=== PATIENT | male | born 1960 | race Caucasian/White ===

== ENCOUNTER 2016-07-30 13:35 | Emergency (ER) | payer BC ==
[~2016-07-30] VITALS: Ht 182.9 cm; Wt 105.0 kg
[~2016-07-30 13:35] MED LIST: CIPR-255 PO; CLR10 PO; CYCL10TA6 PO; FLUT0.0529 NAE; FLUT0.15 NAE; FLX10 PO; HYDC25 PO; HYDR25TA4 PO; LISI-725 PO; LORA-741 PO; LORA0.5T12 PO; NAPR-1169 PO; OMEP40CA PO; RANI300T2 PO; TERA1CAP63 PO
[2016-07-30 13:46] VITALS: TEMP 36.7; Ht 182.9 cm; Wt 105.0 kg
[2016-07-30] MEDS ORDERED: MoRPHine SULFATE 4 MG/ML 1 ML CARP\\VIAL IV STA (13:57)
[2016-07-30] MEDS ORDERED: ONDANSETRON INJ 2 MG/ML 2 ML VIAL IV STA (13:57)
[2016-07-30] MEDS ORDERED: LEVO75TA PO (14:09)
[2016-07-30] MEDS ORDERED: PRLSR20 PO (14:09)
[2016-07-30] MEDS ORDERED: ATEN50TA8 PO (14:09)
[2016-07-30] MEDS ORDERED: AMOX500C3 PO (14:10)
[2016-07-30] MEDS ORDERED: HYDR25TA4 PO (14:10)
[2016-07-30 14:28] LABS: BASO % 1.5 %; BASO ABS # 0.14 K/uL (0-0.2); COMPLETE YES; EOS % 2.5 %; HEMATOCRIT 42.1 % (42-52); IG% 0.3 %; LYMPH % 23.9 %; LYMPH ABS # 2.26 K/uL (1.2-3.4); MEAN CELL VOLUME 87.3 fL (80-100); MEAN CORPUSCULAR HEMOGLOBIN 29.7 pg (25-34); MEAN PLATELET VOLUME 11.4 fL (7.4-10.4); MONO % 13.5 %; NEUT % 58.3 %; PLATELET COUNT 210 K/uL (130-400); RED BLOOD COUNT 4.82 M/uL (4.7-6.1); WHITE BLOOD COUNT 9.45 K/uL (4.8-10.8)
[2016-07-30] MEDS ORDERED: OPTIRAY 320 IV PRN (14:45)
[2016-07-30 15:06] LABS: BUN/CREATININE RATIO 17.3 (10-20); CALCIUM 9.4 mg/dl (8.5-10.1); CREATININE 0.88 mg/dl (0.60-1.40); POTASSIUM 3.8 mmol/L (3.5-5.1)
[2016-07-30] MEDS ORDERED: MoRPHine SULFATE 2 MG/ML CARP IV STA (15:07)
[2016-07-30 15:32] LABS: URINE APPEARANCE CLEAR (CLEAR); URINE BILIRUBIN NEG (NEG); URINE COLOR YELLOW; URINE NITRITE NEG (NEG); URINE PH 7.5 (4.5-7.5); URINE SPECIFIC GRAVITY 1.007 (1.000-1.030); UROBILINOGEN NEG (NEG)
[2016-07-30 15:46] LABS: MANUAL MICROSCOPIC REQUIRED? NO; REVIEW REQ? NO
--- NOTE | 2016-07-30 17:24 | DIAGNOSTIC IMAGING REPORT ---
ABDOMEN AND PELVIS CT WITH IV AND ORAL CONTRAST CT DOSE: 1012.94 mGy.cm HISTORY: lower abd pain eval for diverticulitis TECHNIQUE: Multiaxial CT images of the abdomen and pelvis were performed following the use of intravenous and oral contrast. COMPARISON STUDY: Abdomen and pelvis CT 04/15/2015. FINDINGS: Trace bilateral pleural effusions, unchanged. Bibasilar linear densities favor subsegmental atelectasis. Tiny fat-containing left inguinal hernia. Cholecystectomy. The liver, spleen, pancreas, and adrenal glands are unremarkable. No retroperitoneal lymphadenopathy. No hydronephrosis. There are 2 subcentimeter hypodense lesions within the lower pole of the right kidney with the largest measuring 6 mm. These are too small to characterize but favor cysts. Normal appendix. The bladder is unremarkable. Focal thickening involving the proximal sigmoid colon with associated pericolonic fat stranding. This is consistent with acute diverticulitis. No perforation or abscess identified at this time. Multiple colonic diverticula. No evidence for bowel obstruction. IMPRESSION: 1. Acute sigmoid diverticulitis. No perforation or abscess. Recommend follow-up to ensure resolution. 2. Stable trace bilateral pleural effusions. 3. Additional findings as described above. Electronically signed by: Lio Singh M.D. 07/30/2016 5:23 PM Dictated Date/Time: 07/30/2016 5:19 PM
[2016-07-30] MEDS ORDERED: AMOX875T PO (17:33)
[2016-07-30] MEDS ORDERED: OXYC1TAB3 PO (17:33)
[2016-07-30] MEDS ORDERED: AMOXICILLIN/CLAVULANATE TAB 875 MG TAB PO ONE (17:45)
[2016-07-30 17:47] VITALS: BP 155/102; PULSE 70; O2SAT 99
--- NOTE | 2016-07-30 19:01 | EMERGENCY ROOM VISIT NOTE ---
History Report prepared by Inocencio: Linette Bright Under the Supervision of: Dr. Manuelito Damon M.D. First contact with patient: 13:51 Chief Complaint: ABDOMINAL PAIN Stated Complaint: SHARP PAIN IN LWR RT SIDE/BELLY-GROIN AREA History of Present Illness The patient is a 55 year old male who presents to the Emergency Room with complaints of worsening lower abdominal pain beginning yesterday. The patient states that the pain started on the right side and has radiated to the left. He describes the pain as a burning sensation and sharp. The patient has a history of diverticulitis and notes that the pain feels similar. He is also experiencing groin pain and pain with urination. The patient denies diarrhea, vomiting, fever, or testicular swelling. Source of History: patient Onset: yesterday Position: abdomen (right to left side) Quality: burning, sharp Timing: worsening Associated Symptoms: + urinary symptoms (pain with urination), No diarrhea, No fevers, No hematochezia, No melena, No vomiting Note: The patient has groin pain. He denies testicular swelling. Review of Systems See HPI for pertinent positives & negatives. A total of 10 systems reviewed and were otherwise negative. Past Medical & Surgical Medical Problems: (1) Anxiety (2) Benign hypertension (3) Chest pain (4) Depression (5) Hypospadias (6) Knee pain (7) Pes anserinus bursitis of left knee Surgical Problems: (1) History of cholecystectomy (2) Tonsillectomy and adenoidectomy Family History Gallbladder disease Hypertension Social History Smoking Status: Never Smoker Alcohol Use: none Drug Use: none Marital Status: Housing Status: lives with family Occupation Status: employed Current/Historical Medications Scheduled Amoxicillin (Amoxil), 500 MG PO TID Amoxicillin & Pot Clavulanate (Augmentin 875-125 mg), 875 MG PO BID Atenolol (Tenormin), 50 MG PO DAILY Hydrochlorothiazide (Hctz), 25 MG PO DAILY Levothyroxine Sodium (Synthroid), 75 MCG PO DAILY Lisinopril (Zestril), 20 MG PO DAILY Omeprazole (Prilosec), 40 MG PO DAILY Terazosin Hcl (Hytrin), 10 MG PO HS Scheduled PRN Cyclobenzaprine Hcl (Flexeril), 1 TAB PO HS PRN for MUSCLWE SPASMS Fluticasone Propionate (Nasal) (Flonase Allergy Relief), 2 SPRAYS MARI DAILY PRN for Nasal Congestion Loratadine (Claritin), 10 MG PO DAILY PRN for ALLERGIC REACTION Lorazepam (Lorazepam), 0.5 MG PO Q6 PRN for Anxiety Oxycodone Ir (Roxicodone Ir), 5 MG PO Q4H PRN for Pain Ranitidine Hcl (Zantac), 300 MG PO HS PRN for Dyspepsia Allergies Coded Allergies: Aspirin (Verified Adverse Reaction, Mild, "nose bleed" (high doses), ) Physical Exam Vital Signs Date Time Temp Pulse Resp B/P Pulse Ox O2 Delivery O2 Flow Rate FiO2 07/30/16 17:47 70 18 155/102 99 Room Air 07/30/16 15:32 65 16 149/98 97 Room Air 07/30/16 14:34 72 20 142/94 98 Room Air 07/30/16 13:46 36.7 71 20 150/101 99 Room Air Physical Exam Constitutional: Vital signs reviewed. Eyes: Pupils are equal round reactive to light. Conjunctiva are noninjected. ENT: Pharynx is clear without erythema or exudate. Mucous membranes are moist. Neck supple without meningeal signs. Respiratory: Clear to auscultation bilaterally. Breath sounds are equal bilaterally. Cardiovascular: Regular rate and rhythm. No rubs or gallops. GI: Soft and nondistended. Diffusely tender in lower abdomen, greatest in suprapubic area. No guarding. Bowel sounds are present. Musculoskeletal: No peripheral edema. No CVA tenderness. Integumentary: No cyanosis. Neurological: The patient is awake and alert. No focal deficits. Psychiatric: Normal affect. Medical Decision & Procedures ER Provider Diagnostic Interpretation: CT results as stated below per my review and radiologist interpretation. ABDOMEN AND PELVIS CT WITH IV AND ORAL CONTRAST CT DOSE: 1012.94 mGy.cm HISTORY: lower abd pain eval for diverticulitis TECHNIQUE: Multiaxial CT images of the abdomen and pelvis were performed following the use of intravenous and oral contrast. COMPARISON STUDY: Abdomen and pelvis CT 04/15/2015. FINDINGS: Trace bilateral pleural effusions, unchanged. Bibasilar linear densities favor subsegmental atelectasis. Tiny fat-containing left inguinal hernia. Cholecystectomy. The liver, spleen, pancreas, and adrenal glands are unremarkable. No retroperitoneal lymphadenopathy. No hydronephrosis. There are 2 subcentimeter hypodense lesions within the lower pole of the right kidney with the largest measuring 6 mm. These are too small to characterize but favor cysts. Normal appendix. The bladder is unremarkable. Focal thickening involving the proximal sigmoid colon with associated pericolonic fat stranding. This is consistent with acute diverticulitis. No perforation or abscess identified at this time. Multiple colonic diverticula. No evidence for bowel obstruction. IMPRESSION: 1. Acute sigmoid diverticulitis. No perforation or abscess. Recommend follow-up to ensure resolution. 2. Stable trace bilateral pleural effusions. 3. Additional findings as described above. Electronically signed by: Lio Singh M.D. 07/30/2016 5:23 PM Dictated Date/Time: 07/30/2016 5:19 PM Laboratory Results 07/30/16 14:13 Red Blood Count 4.82, Mean Corpuscular Volume 87.3, Mean Corpuscular Hemoglobin 29.7, Mean Corpuscular Hemoglobin Concent 34.0, Mean Platelet Volume 11.4, Neutrophils (%) (Auto) 58.3, Lymphocytes (%) (Auto) 23.9, Monocytes (%) (Auto) 13.5, Eosinophils (%) (Auto) 2.5, Basophils (%) (Auto) 1.5, Neutrophils # (Auto ) 5.50, Lymphocytes # (Auto) 2.26, Monocytes # (Auto) 1.28, Eosinophils # (Auto ) 0.24, Basophils # (Auto) 0.14 07/30/16 14:13 Test 07/30/16 14:13 07/30/16 15:24 White Blood Count 9.45 K/uL (4.8-10.8) Red Blood Count 4.82 M/uL (4.7-6.1) Hemoglobin 14.3 g/dL (14.0-18.0) Hematocrit 42.1 % (42-52) Mean Corpuscular Volume 87.3 fL (80-100) Mean Corpuscular Hemoglobin 29.7 pg (25-34) Mean Corpuscular Hemoglobin Concent 34.0 g/dl (32-36) Platelet Count 210 K/uL (130-400) Mean Platelet Volume 11.4 fL (7.4-10.4) Neutrophils (%) (Auto) 58.3 % Lymphocytes (%) (Auto) 23.9 % Monocytes (%) (Auto) 13.5 % Eosinophils (%) (Auto) 2.5 % Basophils (%) (Auto) 1.5 % Neutrophils # (Auto) 5.50 K/uL (1.4-6.5) Lymphocytes # (Auto) 2.26 K/uL (1.2-3.4) Monocytes # (Auto) 1.28 K/uL (0.11-0.59) Eosinophils # (Auto) 0.24 K/uL (0-0.5) Basophils # (Auto) 0.14 K/uL (0-0.2) RDW Standard Deviation 43.9 fL (36.4-46.3) RDW Coefficient of Variation 13.7 % (11.5-14.5) Immature Granulocyte % (Auto) 0.3 % Immature Granulocyte # (Auto) 0.03 K/uL (0.00-0.02) Anion Gap 9.0 mmol/L (3-11) Est Creatinine Clear Calc Drug Dose 118.8 ml/min Estimated GFR () 112.1 Estimated GFR (Non- 96.7 BUN/Creatinine Ratio 17.3 (10-20) Calcium Level 9.4 mg/dl (8.5-10.1) Total Bilirubin 0.9 mg/dl (0.2-1) Direct Bilirubin 0.2 mg/dl (0-0.2) Aspartate Amino Transf (AST/SGOT) 27 U/L (15-37) Alanine Aminotransferase (ALT/SGPT) 46 U/L (12-78) Alkaline Phosphatase 117 U/L (45-117) Total Protein 7.5 gm/dl (6.4-8.2) Albumin 4.1 gm/dl (3.4-5.0) Lipase 137 U/L (73-393) Chemistry Specimen Hemolysis Urine Color YELLOW Urine Appearance CLEAR (CLEAR) Urine pH 7.5 (4.5-7.5) Urine Specific [place] 1.007 (1.000-1.030) Urine Protein NEG (NEG) Urine Glucose (UA) NEG (NEG) Urine Ketones NEG (NEG) Urine Occult Blood NEG (NEG) Urine Nitrite NEG (NEG) Urine Bilirubin NEG (NEG) Urine Urobilinogen NEG (NEG) Urine Leukocyte Esterase NEG (NEG) Laboratory results as reviewed by me. Medications Administered Medications (Trade) Dose Ordered Sig/Nichelle Route Start Time Stop Time Status Last Admin Dose Admin Morphine Sulfate (MoRPHine SULFATE INJ) 4 mg ONE STAT IV 07/30/16 13:57 07/30/16 13:59 DC 07/30/16 13:57 4 MG Ondansetron HCl (Zofran Inj) 4 mg NOW STAT IV 07/30/16 13:57 07/30/16 13:59 DC 07/30/16 13:57 4 MG Morphine Sulfate (MoRPHine SULFATE INJ) 2 mg NOW STAT IV 07/30/16 15:07 07/30/16 15:09 DC 07/30/16 15:31 2 MG Amoxicillin/ Clavulanate Potassium (Augmentin Tab) 875 mg ONE ONCE PO 07/30/16 17:45 07/30/16 17:46 DC 07/30/16 17:43 875 MG ED Course 1352: The patient was evaluated in room B8. A complete history and physical exam was performed. 1357: Zofran Inj 4 mg IV, Morphine Sulfate Inj 4 mg IV. 1505: The patient is feeling better but still has some pain. 1507: Morphine Sulfate Inj 2 mg IV. 1730: I discussed the test results including incidental findings on the CT scan. I also discussed medication side effects with the patient. He states that he does not drink alcohol. The patient will follow up with his PCP. I told him to stay on a liquid diet. He states that he does not take his anxiety medication anymore. 1733: Upon reevaluation, the patient appeared to have improvement of his symptoms. I discussed tonight's findings with him. He verbalized agreement of the treatment plan. He was discharged home. 1745: Augmentin Tab 875 mg PO. Medical Decision This is a 55-year-old male who presents with abdominal pain and dysuria. Differential diagnosis includes diverticulitis, abscess, perforation, kidney stone, UTI, appendicitis. I did perform a limited focused review of portions of the patient's old chart on the electronic medical record. The patient had diverticulitis over a year ago. I did evaluate the patient as noted above. IV access was established. I did treat the patient with IV morphine and Zofran. I did order and personally review the patient's urinalysis as described above. There is no evidence of UTI. I did order and review the patient's blood work as noted in the electronic medical record. His white blood cell count is not elevated. I did order a CT of the abdomen and pelvis. I did review the images myself as well as the radiology report as described above. He does have sigmoid diverticulitis without perforation or abscess. There were also some incidental findings which I discussed with the patient. On reassessment he is feeling better. He was told to stay on it with diet for the next several days. He was given a prescription for Augmentin and oxycodone for pain. He was given his first dose of Augmentin here. He was given precautions regarding these medications. He was discharged in good condition with a work note. Impression Primary Impression: Sigmoid diverticulitis Scribe Attestation The scribe's documentation has been prepared under my direct and personally reviewed by me in its entirety. I confirm that the note above accurately reflects all work, treatment, procedures, and medical decision making performed by me. Departure Information Dispostion Home / Self-Care Prescriptions Oxycodone Ir (Roxicodone Ir) 5 Mg Tab 5 MG PO Q4H Y for Pain, #20 TAB Prov: Manuelito Damon M.D. 07/30/16 Amoxicillin & Pot Clavulanate (Augmentin 875-125 mg) 1 Tab Tab 875 MG PO BID for 14 Days, #28 TAB Prov: Manuelito Damon M.D. 07/30/16 Referrals Mau Sesay M.D. (PCP) Forms Call Back Authorization, HOME CARE DOCUMENTATION FORM, IMPORTANT VISIT INFORMATION, Work Instructions Patient Instructions ED Diverticulitis, My [facility] Additional Instructions You have been examined and treated today on an emergency basis only. This is not a substitute for, or an effort to provide, complete comprehensive medical care. It is impossible to recognize and treat all injuries or illnesses in a single emergency department visit. It is therefore important that you follow up closely with your physician within 3 days. Call as soon as possible for an appointment. Return for worsening symptoms or if you develop fever, vomiting, or any other concerning symptoms. Stay on a liquid diet for the next 3 days.
== END 2016-07-30 17:53 | disposition home or self-care (01) ==
LOC: C.EDB 13:36
DX: K57.92 Diverticulitis of intestine, part unspecified, without perforation or abscess without bleeding (principal); I10 Essential (primary) hypertension; F41.9 Anxiety disorder, unspecified; F32.9 Major depressive disorder, single episode, unspecified; Z98.890 Other specified postprocedural states; Z90.49 Acquired absence of other specified parts of digestive tract; Z79.899 Other long term (current) drug therapy; Z88.6 Allergy status to analgesic agent; Z83.79 Family history of other diseases of the digestive system; Z82.49 Family history of ischemic heart disease and other diseases of the circulatory system

== ENCOUNTER 2017-06-03 15:26 | Emergency (ER) | payer BC ==
[~2017-06-03] VITALS: Ht 188 cm; Wt 113.2 kg
[~2017-06-03 15:26] MED LIST changes: +AMOX500C3 PO; +ATEN50TA8 PO; -CIPR-255 PO; -FLUT0.0529 NAE; -FLX10 PO; -HYDC25 PO; +LEVO75TA PO; -LORA-741 PO; -NAPR-1169 PO; -OMEP40CA PO; +PRLSR20 PO
[2017-06-03 15:32] VITALS: Ht 188 cm; Wt 113.2 kg
[2017-06-03] MEDS ORDERED: CEFAZOLIN SOD 1000MG/7.5 ML IV PUSH IV STA (15:51)
[2017-06-03] MEDS ORDERED: IBUP600T44 PO (16:47)
[2017-06-03] MEDS ORDERED: LEVO100T7 PO (16:47)
[2017-06-03] MEDS ORDERED: OXYC-57 PO (16:47)
[2017-06-03] MEDS ORDERED: ASCO250T4 PO (16:47)
[2017-06-03] MEDS ORDERED: ENOX30IN4 SQ (16:47)
[2017-06-03] MEDS ORDERED: FERR1TAB13 PO (16:47)
[2017-06-03] MEDS ORDERED: FLV400 PO (16:47)
[2017-06-03] MEDS ORDERED: TRAM-10 PO (16:47)
[2017-06-03 16:55] VITALS: BP 164/104; PULSE 73; TEMP 37.1; O2SAT 95
[2017-06-03 16:59] LABS: BASO % 1.7 %; BASO ABS # 0.11 K/uL (0-0.2); EOS % 3.4 %; EOS ABS # 0.22 K/uL (0-0.5); HEMOGLOBIN 12.8 g/dL (14.0-18.0); IG# 0.02 K/uL (0.00-0.02); LYMPH % 35.2 %; LYMPH ABS # 2.25 K/uL (1.2-3.4); MEAN CELL VOLUME 86.9 fL (80-100); MEAN CORPUSCULAR HGB CONC 34.6 g/dl (32-36); MEAN PLATELET VOLUME 10.7 fL (7.4-10.4); MONO % 13.3 %; MONO ABS # 0.85 K/uL (0.11-0.59); NEUT % 46.1 %; NEUT ABS # 2.94 K/uL (1.4-6.5); PLATELET COUNT 271 K/uL (130-400); RED CELL DISTRIBUTION WIDTH CV 13.6 % (11.5-14.5); RED CELL DISTRIBUTION WIDTH SD 43.2 fL (36.4-46.3); WHITE BLOOD COUNT 6.39 K/uL (4.8-10.8)
--- NOTE | 2017-06-03 17:00 | DIAGNOSTIC IMAGING REPORT ---
L KNEE 1 OR 2 VIEWS ROUTINE CLINICAL HISTORY: 56 years-old Male presenting with left knee redness s/p arthroplasty 3 wks ago. TECHNIQUE: Frontal and crosstable lateral views of the left knee were obtained. COMPARISON: 03/17/2013. FINDINGS: There has been interval total left knee arthroplasty with patellar resurfacing. A joint effusion may be present. No acute fracture. No malalignment. No hardware complication. Enthesophyte at the insertion of the quadriceps tendon. Suggestion of subcutaneous edema. IMPRESSION: 1. Knee joint effusion. Sterility cannot be confirmed. 2. Otherwise expected postsurgical changes status post left total knee arthroplasty with patellar resurfacing. Electronically signed by: Ubaldo Brooks M.D. 06/03/2017 4:59 PM Dictated Date/Time: 06/03/2017 4:58 PM
[2017-06-03 17:19] LABS: CREATININE 0.9 mg/dl (0.60-1.40); POTASSIUM 3.5 mmol/L (3.5-5.1)
[2017-06-03] MEDS ORDERED: CEPH500C PO (17:26)
--- NOTE | 2017-06-03 17:31 | EMERGENCY ROOM VISIT NOTE ---
History Report prepared by Inocencio: Cooper Moore Under the Supervision of: Dr. Saumel Lamb D.O. First contact with patient: 15:41 Chief Complaint: INFECTION Stated Complaint: LEFT LEG INFECTION?, KNEE REPLACED 05/15/17 History of Present Illness The patient is a 56 year old male who presents to the Emergency Room with complaints of worsening left knee pain that began 2 days ago. He had left knee surgery on 05/15/[address] Lainez at [place]. He states his knee has been erythematous for 2 days and has been spreading. He has been doing physical therapy on a regular basis. He states he has a low grade fever. Source of History: patient Onset: 2 days ago Position: knee (left) Symptom Intensity: moderate Quality: ache Timing: worsening Associated Symptoms: + fevers (lowgrade fevers) Review of Systems See HPI for pertinent positives & negatives. A total of 10 systems reviewed and were otherwise negative. Past Medical & Surgical Medical Problems: (1) Anxiety (2) Benign hypertension (3) Chest pain (4) Depression (5) Hypospadias (6) Knee pain (7) Pes anserinus bursitis of left knee Surgical Problems: (1) History of cholecystectomy (2) Tonsillectomy and adenoidectomy Family History Gallbladder disease Hypertension Social History Smoking Status: Never Smoker Alcohol Use: none Drug Use: none Marital Status: Housing Status: lives with family Occupation Status: employed Current/Historical Medications Scheduled Ascorbic Acid (Vitamin C), 250 MG PO DAILY Atenolol (Tenormin), 50 MG PO DAILY Cephalexin Monohydrate (Keflex), 500 MG PO QID Enoxaparin (Lovenox), 30 MG SQ Q12H Ferrous Sulfate (Kp Ferrous Sulfate), 325 MG PO DAILY Folic Acid (Folic Acid), 800 MCG PO DAILY Hydrochlorothiazide (Hctz), 25 MG PO DAILY Levothyroxine Sodium (Levothyroxine Sodium), 100 MCG PO DAILY Lisinopril (Zestril), 20 MG PO DAILY Omeprazole (Prilosec), 40 MG PO DAILY Terazosin Hcl (Hytrin), 10 MG PO HS Scheduled PRN Cyclobenzaprine Hcl (Flexeril), 1 TAB PO HS PRN for MUSCLWE SPASMS Fluticasone Propionate (Nasal) (Flonase Allergy Relief), 2 SPRAYS MARI DAILY PRN for Nasal Congestion Ibuprofen (Motrin), 600 MG PO Q8 PRN for Pain Loratadine (Claritin), 10 MG PO DAILY PRN for ALLERGIC REACTION Oxycodone/Acetaminophen 5MG/325MG (Percocet 5MG/325MG), 1 TABLET PO Q4H PRN for Pain Ranitidine Hcl (Zantac), 300 MG PO HS PRN for Dyspepsia Tramadol (Ultram), 50 MG PO Q6 PRN for Pain Allergies Coded Allergies: Aspirin (Verified Adverse Reaction, Mild, "nose bleed" (high doses), ) Physical Exam Vital Signs Date Time Temp Pulse Resp B/P (MAP) Pulse Ox O2 Delivery O2 Flow Rate FiO2 06/03/17 16:55 37.1 73 18 164/104 95 Room Air 06/03/17 15:32 36.7 82 16 195/111 96 Room Air Physical Exam CONSTITUTIONAL/VITAL SIGNS: Reviewed / noted above. GENERAL: Non-toxic in appearance. INTEGUMENTARY: Warm, dry, and [place]. HEAD: Normocephalic. EYES: without scleral icterus or trauma. ENT/OROPHARYNX: clear and moist. LYMPHADENOPATHY/NECK: Is supple without lymphadenopathy or meningismus. RESPIRATORY: Lungs clear and equal. CARDIOVASCULAR: Regular rate and rhythm. GI/ABDOMEN: Soft and nontender. No organomegaly or pulsatile mass. No rebound or guarding. Normal bowel sounds. EXTREMITIES: Warm and well perfused. Vertical incision of left knee from recent knee surgery. The upper 3-4 inches of the incision has erythema noted, extended about 1 inch on either side of the incision. No discharge. No tenderness. BACK: No CVA tenderness. NEUROLOGICAL: Intact without focal deficits. PSYCHIATRIC: normal affect. MUSCULOSKELETAL: Normally developed with good muscle tone. Medical Decision & Procedures ER Provider Diagnostic Interpretation: Radiology results as stated below per my review and radiologist interpretation: L KNEE 1 OR 2 VIEWS ROUTINE CLINICAL HISTORY: 56 years-old Male presenting with left knee redness s/p arthroplasty 3 wks ago. TECHNIQUE: Frontal and crosstable lateral views of the left knee were obtained. COMPARISON: 03/17/2013. FINDINGS: There has been interval total left knee arthroplasty with patellar resurfacing. A joint effusion may be present. No acute fracture. No malalignment. No hardware complication. Enthesophyte at the insertion of the quadriceps tendon. Suggestion of subcutaneous edema. IMPRESSION: 1. Knee joint effusion. Sterility cannot be confirmed. 2. Otherwise expected postsurgical changes status post left total knee arthroplasty with patellar resurfacing. Electronically signed by: Ubaldo Brooks M.D. 06/03/2017 4:59 PM Dictated Date/Time: 06/03/2017 4:58 PM Laboratory Results 06/03/17 16:45 Red Blood Count 4.26, Mean Corpuscular Volume 86.9, Mean Corpuscular Hemoglobin 30.0, Mean Corpuscular Hemoglobin Concent 34.6, Mean Platelet Volume 10.7, Neutrophils (%) (Auto) 46.1, Lymphocytes (%) (Auto) 35.2, Monocytes (%) (Auto) 13.3, Eosinophils (%) (Auto) 3.4, Basophils (%) (Auto) 1.7, Neutrophils # (Auto ) 2.94, Lymphocytes # (Auto) 2.25, Monocytes # (Auto) 0.85, Eosinophils # (Auto ) 0.22, Basophils # (Auto) 0.11 06/03/17 16:45 Test 06/03/17 16:45 White Blood Count 6.39 K/uL (4.8-10.8) Red Blood Count 4.26 M/uL (4.7-6.1) Hemoglobin 12.8 g/dL (14.0-18.0) Hematocrit 37.0 % (42-52) Mean Corpuscular Volume 86.9 fL (80-100) Mean Corpuscular Hemoglobin 30.0 pg (25-34) Mean Corpuscular Hemoglobin Concent 34.6 g/dl (32-36) Platelet Count 271 K/uL (130-400) Mean Platelet Volume 10.7 fL (7.4-10.4) Neutrophils (%) (Auto) 46.1 % Lymphocytes (%) (Auto) 35.2 % Monocytes (%) (Auto) 13.3 % Eosinophils (%) (Auto) 3.4 % Basophils (%) (Auto) 1.7 % Neutrophils # (Auto) 2.94 K/uL (1.4-6.5) Lymphocytes # (Auto) 2.25 K/uL (1.2-3.4) Monocytes # (Auto) 0.85 K/uL (0.11-0.59) Eosinophils # (Auto) 0.22 K/uL (0-0.5) Basophils # (Auto) 0.11 K/uL (0-0.2) RDW Standard Deviation 43.2 fL (36.4-46.3) RDW Coefficient of Variation 13.6 % (11.5-14.5) Immature Granulocyte % (Auto) 0.3 % Immature Granulocyte # (Auto) 0.02 K/uL (0.00-0.02) Anion Gap 6.0 mmol/L (3-11) Est Creatinine Clear Calc Drug Dose 122.7 ml/min Estimated GFR () 110.3 Estimated GFR (Non- 95.1 BUN/Creatinine Ratio 10.2 (10-20) Calcium Level 9.0 mg/dl (8.5-10.1) Laboratory results as stated above per my review. Medications Administered Medications (Trade) Dose Ordered Sig/Nichelle Route Start Time Stop Time Status Last Admin Dose Admin Cefazolin Sodium (Cefazolin 1000mg Iv Push) 3,000 mg NOW STAT IV 06/03/17 15:51 06/03/17 15:56 DC 06/03/17 16:50 3,000 MG ED Course 1541: Previous medical records were reviewed. The patient was evaluated in room B11B. A complete history and physical examination was performed. 1551: Cefazolin 1000 mg IV Push, 3,000 mg, IV. 1730: On reevaluation, the patient is doing well. I discussed the results and findings with the patient. He verbalized agreement of the treatment plan and follow up with his orthopedist. He was discharged home. Medical Decision Differential diagnosis: Etiologies such as cellulitis, abscess, MRSA infection, DVT, necrotizing fasciitis, dermatitis, drug eruption, as well as others were entertained.. This is a 56-year-old male who presents to the ED with a chief complaint of left knee pain. The patient had a complete left knee arthroplasty May 15. This was done at [facility]. The patient states that over the past 24 hours he noticed some redness at the top of the incision. Denies any discharge, fevers or other symptoms. Exam as noted above. There is some erythema to the superior aspect of the surgical incision site. There is no discharge. X-ray reveals a knee joint effusion and postsurgical changes. CBC reveals a normal white blood cell count, and unremarkable hemoglobin. PRP was normal. The patient was told the results. The patient was given IV Ancef.. He will be discharged on Keflex. He was told to follow-up with his orthopedist later this week for recheck. Medication Reconcilliation Current Medication List: was personally reviewed by me Blood Pressure Screening Patient's blood pressure: Elevated blood pressure Blood pressure disposition: Referred to PCP Impression Primary Impression: Cellulitis of knee, left Scribe Attestation The scribe's documentation has been prepared under my direction and personally reviewed by me in its entirety. I confirm that the note above accurately reflects all work, treatment, procedures, and medical decision making performed by me. Departure Information Dispostion Home / Self-Care Prescriptions Cephalexin Monohydrate (Keflex) 500 Mg Cap 500 MG PO QID, #40 CAP Prov: Samuel Lamb D.O. 06/03/17 Referrals Mau Sesay M.D. (PCP) Patient Instructions My [facility] Additional Instructions Take Keflex as prescribed. Follow-up with your orthopedist this week for recheck. Call Monday for an appointment. Follow-up with your doctor for further care and evaluation in 1-2 days. Return to the emergency department for worsening or new symptoms or any concerns. You have been examined and treated today on an emergency basis only. This is not a substitute for, or an effort to provide, complete comprehensive medical care. It is impossible to recognize and treat all injuries or illnesses in a single emergency department visit. It is therefore important that you follow up closely with your doctor. Call as soon as possible for an appointment.
== END 2017-06-03 17:35 | disposition home or self-care (01) ==
LOC: C.EDB 15:27
DX: L03.116 Cellulitis of left lower limb (principal); Z98.890 Other specified postprocedural states; F41.9 Anxiety disorder, unspecified; I10 Essential (primary) hypertension; F32.9 Major depressive disorder, single episode, unspecified; Z90.49 Acquired absence of other specified parts of digestive tract; Z82.49 Family history of ischemic heart disease and other diseases of the circulatory system; Z79.01 Long term (current) use of anticoagulants; Z79.899 Other long term (current) drug therapy; Z88.6 Allergy status to analgesic agent; Z96.652 Presence of left artificial knee joint